=== PATIENT | male | born 1960 | race Two or more races ===

== ENCOUNTER 2019-02-28 16:29 | Inpatient (IN) | payer OTHER ==
[~2019-02-28] VITALS: Ht 167.6 cm; Wt 81.2 kg
[2019-04-22] MEDS ORDERED: LOSARTAN-HCTZ1 EAC2 PO (08:18)
[2019-04-22] MEDS ORDERED: BUPROPION HCL200 M1 PO (08:19)
[2019-04-22] MEDS ORDERED: PEPCID AC10 MG PO (08:19)
[2019-04-22] MEDS ORDERED: CLONAZEPAM0.5 MG PO (08:19)
[2019-04-22] MEDS ORDERED: FENOFIBRATE150 MG PO (08:20)
[2019-04-22] MEDS ORDERED: NORVASC5 MG PO (08:20)
[2019-04-22] MEDS ORDERED: CLONAZEPAM1 MG PO (08:20)
[2019-04-22] MEDS ORDERED: ASPIR 8181 MG PO (08:21)
[2019-04-22] MEDS ORDERED: ZOCOR20 MG PO (08:21)
[2019-04-22] MEDS ORDERED: PROSOM PO (08:22)
[2019-04-28] MEDS ORDERED: FAMOTIDINE40 MG PO (09:15)
[2019-04-28] MEDS ORDERED: BUPROPION XL300 MG PO (09:15)
[2019-04-28] MEDS ORDERED: ESTAZOLAM2 MG PO (09:16)
[2019-04-28] MEDS ORDERED: FENOFIBRATE145 MG PO (09:16)
== END 2019-04-30 10:02 | disposition home or self-care (01) | DRG 708 ==
LOC: SURH 04-28 05:10 → O/R 04-28 05:10 → SURG 04-28 07:00 → SURH 04-28 11:52
PROVIDERS: ADMIT Urology
PROC: 07TC0ZZ Resection of Pelvis Lymphatic, Open Approach (ICD-10-PCS; 2019-04-28)
PROC: 0VT00ZZ Resection of Prostate, Open Approach (ICD-10-PCS; principal; 2019-04-28 07:00)
DX: C61 Malignant neoplasm of prostate (principal)